=== PATIENT | male | born 1990 | race Caucasian/White ===

== ENCOUNTER 2020-12-28 11:23 | Emergency (ER) | payer BC ==
[~2020-12-28] VITALS: Ht 172.7 cm; Wt 73.9 kg
[~2020-12-28 11:23] MED LIST: AUGMENTIN 500 M1 TAB PO; CEPHALEXIN500 M1 PO; CIPRO500 MG PO; CLINDAMYCIN HC300 MG PO; KEFLEX500 MG PO; MOTRIN800 MG PO; NORCO 5-325 TA1 EACH PO; PROVENTIL0.09 MG/AC IH
[2020-12-28 11:53] LABS: BILIRUBIN Negative (Negative); BLOOD Negative (Negative); CLARITY Clear (Clear); COLOR Yellow (Yellow); GLUCOSE 1+ (Negative); KETONE Trace (Negative); LEUKO ESTERASE Negative (Negative); NITRITE Negative (Negative)
[2020-12-28 12:04] LABS: BACTERIA TRACE; EPITHELIAL CELLS 0-2
[2020-12-28 12:38] LABS: BASO % 0.9 % (0.0-1.0); EOS % 0.9 % (1.0-4.0); LYMPH # 0.6 10*3/uL (1.3-4.4); LYMPH % 19.2 % (27.0-41.0); MEAN CELL VOLUME 85.2 fl (80.0-94.0); MEAN PLATELET VOLUME 9.9 fl (9.6-12.3); MONO # 0.3 10*3/uL (0.1-1.0); MONO % 9.9 % (3.0-9.0); NEUT # 2.3 10*3/uL (2.3-7.9); NEUT % 68.8 % (47.0-73.0); PLATELET COUNT AUTOMATED 148 10*3/uL (130-400); RED BLOOD COUNT 5.28 10*6/uL (4.50-5.90); RED CELL DISTRI WIDTH 11.7 % (0-14.5); WHITE BLOOD COUNT 3.3 10*3/uL (4.8-10.8)
[2020-12-28 12:55] LABS: ALBUMIN 3.6 gm/dl (3.1-4.5); ALKALINE PHOSPHATASE 103 U/L (45-117); BUN 8 mg/dl (7-24); CHLORIDE 108 mmol/L (98-107); CREATININE 0.91 mg/dL (0.70-1.30); POTASSIUM 4.2 mmol/L (3.5-5.1); SGOT/AST 24 IU/L (3-35); SGPT/ALT 24 U/L (12-78); SODIUM 140 mmol/L (136-145)
== END 2020-12-28 14:09 | disposition home or self-care (01) ==
LOC: ED 11:23
PROVIDERS: Emergency Medicine
DX: M54.5 Low back pain (principal); Z20.822 Contact with and (suspected) exposure to COVID-19; R50.9 Fever, unspecified; Z79.2 Long term (current) use of antibiotics; Z79.899 Other long term (current) drug therapy

== ENCOUNTER 2022-09-06 21:08 | Emergency (ER) | payer OTHER, BC ==
[~2022-09-06] VITALS: Ht 172.7 cm; Wt 79.4 kg
== END 2022-09-07 04:04 | disposition left against medical advice (07) ==
LOC: ED 21:08
DX: S92.142A Displaced dome fracture of left talus, initial encounter for closed fracture (principal); Z98.890 Other specified postprocedural states; X50.1XXA Overexertion from prolonged static or awkward postures, initial encounter; Y93.89 Activity, other specified; Y92.89 Other specified places as the place of occurrence of the external cause; Y99.0 Civilian activity done for income or pay

== ENCOUNTER 2022-09-07 10:03 | Emergency (ER) | payer OTHER, BC ==
[~2022-09-07] VITALS: Ht 172.7 cm; Wt 79.4 kg
== END 2022-09-07 10:58 | disposition home or self-care (01) ==
LOC: ED 10:03
DX: S92.152A Displaced avulsion fracture (chip fracture) of left talus, initial encounter for closed fracture (principal); Z98.890 Other specified postprocedural states; X58.XXXA Exposure to other specified factors, initial encounter; Y93.89 Activity, other specified; Y92.89 Other specified places as the place of occurrence of the external cause; Y99.8 Other external cause status